=== PATIENT | female | born 1955 | race Caucasian/White ===

== ENCOUNTER 2017-11-15 15:18 | Inpatient (IN) | payer MEDICAID ==
[2017-11-15 15:20] VITALS: BMI 33.0
--- NOTE | 2017-11-15 16:33 | C.PDOC ---
History Of Present Illness 62 y/o female presents to the ED 5requesting for detox. The patient states that she had 8 cans a beer a day. The patient denies chest pain,Sob, SI, HI, diarrhea , and abdominal pain. Time Seen by Provider: 11/15/17 16:00 Chief Complaint (Nursing): Substance Abuse History Per: Patient History/Exam Limitations: other (alcohol abuse) Onset/Duration Of Symptoms: Days Current Symptoms Are (Timing): Still Present Additional History Per: Patient Past Medical History Reviewed: Historical Data, Nursing Documentation, Vital Signs Vital Signs: Last Vital Signs Temp 99.8 F H 11/15/17 15:58 Pulse 96 H 11/15/17 15:58 Resp 18 11/15/17 15:58 BP 138/77 11/15/17 15:58 Pulse Ox 96 11/15/17 18:44 - Medical History PMH: Anxiety, Depression, HTN Denies: Diabetes, Hepatitis, HIV, Seizures, Sexually Transmitted Disease Surgical History: Appendectomy, Endoscopy - [facility] Procedures ALCOHOL DETOXIFICATION (12/13/13) LAPAROSCOP APPENDECTOMY (07/27/13) OTHER GROUP THERAPY (05/08/13) OTHER LOCAL DESTRUC SKIN (07/28/02) RADICAL EXCIS SKIN LES (07/28/02) Family History: States: No Known Family Hx - Social History Hx Tobacco Use: Yes (1/2 pack daily) Hx Alcohol Use: Yes (1 pint pippa daily) Hx Substance Use: No - Immunization History Hx Tetanus Toxoid Vaccination: No Hx Influenza Vaccination: No Hx Pneumococcal Vaccination: Yes Review Of Systems Except As Marked, All Systems Reviewed And Found Negative. Constitutional: Negative for: Fever, Chills Cardiovascular: Negative for: Chest Pain, Palpitations Respiratory: Negative for: Cough, Shortness of Breath Gastrointestinal: Negative for: Nausea, Vomiting, Abdominal Pain, Diarrhea Skin: Negative for: Rash Physical Exam - Physical Exam Appears: Non-toxic, Other (calm) Skin: Warm, Dry Head: Atraumatic, Normacephalic Eye(s): bilateral: Normal Inspection Oral Mucosa: Moist Neck: Supple Chest: Symmetrical, No Tenderness Cardiovascular: Rhythm Regular Respiratory: Normal Breath Sounds, No Rales, No Rhonchi Gastrointestinal/Abdominal: Soft, No Tenderness, No Guarding, No Rebound Back: No CVA Tenderness Extremity: No Tenderness, Capillary Refill (2<sec.) Neurological/Psych: Normal Speech, Normal Sensation, Other (substance abuse ) Gait: Steady ED Course And Treatment - Laboratory Results Result Diagrams: 11/15/17 16:49 11/15/17 16:49 ECG Rhythm: Sinus Rhythm (97bpm, normal axis, poor R wave progression, and non specific st or T wave changes.) O2 Sat by Pulse Oximetry: 96 (RA) - Radiology CXR: Viewed By Me - Other Rad Chest X- ray X-Ray: Viewed By Me Interpretation: PROCEDURE: CHEST RADIOGRAPH, 1 VIEW. HISTORY: Detox/Psy. COMPARISON: 12/13/2013. FINDINGS: LUNGS: Clear. PLEURA: No pneumothorax or pleural fluid seen. CARDIOVASCULAR: Normal. OSSEOUS STRUCTURES: No significant abnormalities. VISUALIZED UPPER ABDOMEN: Normal. OTHER FINDINGS: None. IMPRESSION: No active disease. No acute/significant interval changes. Progress Note: UA, Blood work, Chest X- ray ,and EKG were performed. Chest X- ray exam was unremarkable. The patient is aferbile and asymptomatic. Upon reassessment, the patient is not in acute distress. Evaluation with Crisis at 7pm for consideration for placement. Diagnosed with substance and alcohol abuse. Medical Decision Making Medical Decision Making: patient signed out to Dr. Petersen pending sobriety and crisis evaluation. Disposition Counseled Patient/Family Regarding: Diagnosis - Disposition Disposition Time: 19:00 Condition: FAIR Forms: [facility] ([place] Citizen) - Clinical Impression Clinical Impression: Alcohol dependence - Scribe Statement The provider has reviewed the documentation as recorded by the Homero Smith Physician Patient Turnover Patient Signed Over To: Nate Petersen Handoff Comments: pending sobriety and crisis evaluation
[2017-11-15 17:01] LABS: BASO % 0.3 % (0.0-2.0); EOS % 0.2 % (0.0-4.0); HEMOGLOBIN 15.2 g/dL (11.0-16.0); LYMPH # 0.6 K/uL (1.0-4.3); LYMPH % 8.9 % (20.0-40.0); MEAN CORPUSCULAR HEMOGLOBIN 32.4 pg (27.0-31.0); MEAN CORPUSCULAR HGB CONC 33.9 g/dL (33.0-37.0); MEAN PLATELET VOLUME 7.8 fL (7.2-11.7); MONO # 0.3 K/uL (0.0-0.8); MONO % 3.9 % (0.0-10.0); NEUT # 6.2 K/uL (1.8-7.0); NEUT % 86.7 % (50.0-75.0); NRBC % 0.1 % (0.0-2.0); PLATELET COUNT 211 K/uL (130-400); WHITE BLOOD COUNT 7.1 K/uL (4.8-10.8)
[2017-11-15 17:13] LABS: MEAN CELL VOLUME 95.4 fL (81.0-99.0)
--- NOTE | 2017-11-15 17:14 | RAD ---
PROCEDURE: CHEST RADIOGRAPH, 1 VIEW HISTORY: Detox/Psy COMPARISON: 12/13/2013 FINDINGS: LUNGS: Clear. PLEURA: No pneumothorax or pleural fluid seen. CARDIOVASCULAR: Normal. OSSEOUS STRUCTURES: No significant abnormalities. VISUALIZED UPPER ABDOMEN: Normal. OTHER FINDINGS: None. IMPRESSION: No active disease. No acute/significant interval changes.
[2017-11-15 17:16] LABS: ALT/SGPT 49 U/L (9-52); AST/SGOT 90 U/L (14-36); BLOOD UREA NITROGEN 5 mg/dL (7-17); CALCIUM 8.6 mg/dl (8.6-10.4); GFR AFRICAN-AMERICAN > 60; GFR NON-AFRICAN AMERICAN > 60
[2017-11-15 17:16] LABS: SQUAMOUS EPITHIAL 44 /hpf (0-5); URINE BACTERIA OCC (<OCC)
[2017-11-15 17:18] LABS: PH,URINE 5.5 (5.0-8.0); URINE BILIRUBIN SMALL (NEGATIVE); URINE BLOOD SMALL (NEGATIVE); URINE CLARITY Hazy (Clear); URINE COLOR YELLOW (YELLOW); URINE GLUCOSE (UA) 100 mg/dL (Normal); URINE LEUKOCYTE ESTERASE NEGATIVE Leu/uL (Negative); URINE NITRATE POSITIVE (NEGATIVE); URINE PROTEIN 100 mg/dL (NEGATIVE)
[2017-11-15 17:20] LABS: ALB/GLOB RATIO 0.8 (1.0-2.1)
[2017-11-15] MEDS ORDERED: Thiamine 100 mg/ml Inj IM ONE (17:33)
[2017-11-15 17:48] LABS: BARBITURATES, UR NEGATIVE (NEGATIVE); BENZODIAZEPINES, UR NEGATIVE (NEGATIVE); OPIATES, UR NEGATIVE (NEGATIVE); PHENCYCLIDINE, UR NEGATIVE (NEGATIVE)
[2017-11-15 18:13] LABS: BANDS 3 % (0-2); EOSINOPHIL 1 % (0-4); LYMPHOCYTE 6 % (20-40); MONOCYTE 8 % (0-10); NEUTROPHIL 82 % (50-75); PLATELET ESTIMATE NORMAL (NORMAL); TOTAL CELLS COUNTED 100
[2017-11-15 18:15] LABS: MICROCYTOSIS SLIGHT
[2017-11-15 18:16] LABS: LARGE PLATELETS PRESENT
[2017-11-15] MEDS ORDERED: Thiamine 100 mg/ml Inj ONE (19:23)
--- NOTE | 2017-11-15 19:24 | PCM.BM ---
<ChiloZahida - Last Filed: 11/15/17 19:23> Treatment Plan Problems - Problems identified on initial assessmt Potential for alcohol withdrawal Date Initiated: 11/15/17 Time Initiated: 19:23 Assessment reference: NA Status: Active Priority: 1 Treatment assets and liabiliti Patient Assests: ADL independent, negotiates basic needs, cognitively intact Patient Liabilities: substance abuse (ETOH) - Milieu Protocol Maintain good personal hygiene: daily Encourage regular showers, daily Remind patient to perform daily oral care, daily Assist patient to perform ADL's Conduct patient checks and document Observation sheet: Q15 minutes Maintain personal safety: every shift Educate patient to report safety concerns to staff, every shift Monitor environment for contraband/sharps Medication safety: Monitor for expected outcome, potential side effects: every shift, Assess barriers to learning: every shift, Assess readiness for medication education: every shift <Graeme Shepard - Last Filed: 11/18/17 00:15> - Diagnosis (1) Alcohol dependence Status: Acute Interventions: 11/18/17 00:15 * Assess 7x/week regarding severity of withdrawal * Educate regarding risks, benefits, side effects and alternatives of medications * Use Motivational Interviewing for abstinence * Use CBT for relapse prevention * Medication management for withdrawal symptoms * Encourage medication assisted treatment *
[2017-11-16] MEDS: Multiple Vitamins Tab PO SCH (09:28)
--- NOTE | 2017-11-16 14:17 | PCM.PSYCH ---
Initial Psychiatric Evaluation - Initial Psychiatric Evaluation Type of Admission: Voluntary Legal Status: Capacity Chief Complaint (in patient's own words): "I want to detox from alcohol" History of Present Illness and Precipitating Events: Patient is a 62 year old female who was admitted for detox from alcohol. She is and has one 36 year old daughter with whom she lives. Currently she is unemployed and collecting welfare. She states she has a 10-15 year history of using alcohol. She states on average she drinks 8 to 9 cans of beer daily. He longest span of sobriety was 3 months. She currently is reporting symptoms of withdrawal: anxiety, sweating, shaking. She denies any seizures in the past. She denies the use of drugs and recently quit smoking 1 year ago. She states she had been to detox one time in 2013 here at [facility] ([facility] Patient also reports going to . She has never attended a rehab. She currently is expressing that she wants to get help so she can "get my life back together. get a job, and live on my own." Patient states she is willing to try anything but would prefer an out patient rehab center. Psych Hx: Depression PMH: Denies Family psych hx: Father, brother, and sister have alcohol use disorder. Current Medications: Active Medications Generic Name Dose Route Start Last Admin Trade Name Freq PRN Reason Stop Dose Admin Chlordiazepoxide 25 mg 11/15/17 20:13 11/15/17 22:18 Librium PO 25 mg Q4H PRN Administration Alcohol Withdrawal Chlordiazepoxide 25 mg 11/16/17 00:00 11/16/17 11:14 Librium PO 11/20/17 23:59 25 mg Q6H MARCO Administration Taper Folic Acid 1 mg 11/16/17 10:00 11/16/17 09:28 Folic Acid PO Not Given DAILY MARCO Ibuprofen 600 mg 11/16/17 04:42 11/16/17 06:44 Motrin Tab PO 600 mg Q8H PRN Administration Pain, moderate (4-7) Multivitamins 1 tab 11/16/17 10:00 11/16/17 09:28 Hexavitamin PO Not Given DAILY MARCO Thiamine HCl 100 mg 11/16/17 10:00 11/16/17 09:28 Vitamin B1 Tab PO Not Given DAILY MARCO Trazodone HCl 100 mg 11/16/17 10:01 Desyrel PO HS PRN Insomnia Past Psychiatric History - Past Psychiatric History Pertinent Medical Hx (Current Medical&Sleep Prob, Allergies): Allergies Allergy/AdvReac Type Severity Reaction Status Date / Time No Known Allergies Allergy Verified 05/08/13 17:48 Acetaminophen [Tylenol 325mg tab] 650 mg PO Q6 #20 tab 01/10/16 Promethazine DM [Phenergan DM Syrup] 5 ml PO QID #120 ml 01/10/16 Review of Systems - Review of Systems All systems: reviewed and no additional remarkable complaints except - Constitutional Constitutional: Sweats, Weakness - Musculoskeletal Musculoskeletal: Muscle Weakness - Neurological Neurological: Tremor - Psychiatric Psychiatric: Anxiety, Depression. absent: Hallucinations, Homicidal Ideation, Paranoia, Suicidal Ideation Mental Status Examination - Personal Presentation Personal Presentation: Looks stated age - Affect Affect: Constricted - Motor Activity Motor Activity: Calm - Reliability in Providing Information Reliability in Providing Information: Good - Speech Speech: Organized - Mood Mood: Depressed - Formal Thought Process Formal Thought Process: No Impairment - Cognitive Functions Orientation: Person, Place, Situation, Time Sensorium: Lethargic Attention/Concentration: Attentive Abstract Thinking: [place] Estimate of Intelligence: Below average - Risk Risk: Withdrawal, Diminished functioning DSM 5 DX - DSM 5 DSM 5 Diagnosis: Alcohol use disorder- Severe Alcohol withdrawal - Recommended/Plan of Treatment Treatment Recommendations and Plan of Treatment: Librium taper has been started Vitamins started As needed medications Attend groups and activities Supportive therapy and psychoeducation [place] for abstinence CBT for relapse prevention Encourage MAT Refer to rehab or IOP Attend self-help groups as well 34min
--- NOTE | 2017-11-17 00:04 | CARD ---
APPROVED REPORT EKG Measurement Heart [id number] <Conclusion> Normal sinus rhythm Inferior infarct, age undetermined Cannot rule out Anterior infarct, age undetermined ST & T wave abnormality, consider lateral ischemia Abnormal ECG
[2017-11-17] MEDS: Multiple Vitamins Tab PO SCH (09:28)
--- NOTE | 2017-11-17 14:45 | PCM.PYCHPN ---
Psychiatric Progress Note - Psychiatric Progress Note Patient seen today, length of contact: 16min Patient Chief Complaint: "I had back pain all night" Problems Identified/Issues Discussed: The pt is seen, chart reviewed, case discussed with staff. Patient states she feels a little better. She was unable to sleep through the night because of terrible back pain. She also states she is feeling weak and shaky. The pt is compliant with medications and reports no side-effects. Symptoms are improving but needs more time to stabilize. After care discussed, support and psychoeducation given. Medication Change: Yes Medical Record Reviewed: Yes Mental Status Examination - Cognitive Function Orientation: Person, Place, Situation, Time Memory: Intact Attention: WNL Concentration: Poor Association: WNL Fund of Knowledge: WNL - Mood Mood: Depressed - Affect Affect: Constricted, Flat - Speech Speech: Soft - Formal Thought Process Formal Thought Process: No Impairment - Suicidal Ideation Suicidal Ideation: No - Homicidal Ideation Homicidal Ideation: No Goal/Treatment Plan - Goal/Treatment Plan Need for Continued Stay: Discharge may exacerbated symptoms, Severe functional impairment Progress Toward Problem(s) and Goals/Treatment Plan: Librium taper has been started Vitamins started As needed medications Attend groups and activities Supportive therapy and psychoeducation [place] for abstinence CBT for relapse prevention Encourage MAT Refer to rehab or IOP Attend self-help groups as well
[2017-11-18] MEDS: Multiple Vitamins Tab PO SCH (10:19)
--- NOTE | 2017-11-18 13:14 | PCM.PYCHPN ---
Psychiatric Progress Note - Psychiatric Progress Note Patient seen today, length of contact: 16min Patient Chief Complaint: "I was able to sleep more, but my back is still sore." Problems Identified/Issues Discussed: The pt is seen, chart reviewed, case discussed with staff. Patient states she is weak and shaky. Back pain is improving. The pt is compliant with medications and reports no side-effects. Symptoms are improving but needs more time to stabilize. After care discussed, support and psychoeducation given. Medication Change: Yes (Librium taper ) Medical Record Reviewed: Yes Mental Status Examination - Cognitive Function Orientation: Person, Place, Situation, Time Memory: Intact Attention: WNL Concentration: WNL Association: WNL Fund of Knowledge: WNL - Mood Mood: Depressed - Affect Affect: Constricted, Flat - Speech Speech: Soft - Formal Thought Process Formal Thought Process: No Impairment - Suicidal Ideation Suicidal Ideation: No - Homicidal Ideation Homicidal Ideation: No Goal/Treatment Plan - Goal/Treatment Plan Need for Continued Stay: Discharge may exacerbated symptoms, Severe functional impairment Progress Toward Problem(s) and Goals/Treatment Plan: Librium taper has been started Vitamins started As needed medications Attend groups and activities Supportive therapy and psychoeducation [place] for abstinence CBT for relapse prevention Encourage MAT Refer to rehab or IOP Attend self-help groups as well
[2017-11-19] MEDS: Multiple Vitamins Tab PO SCH (09:39)
--- NOTE | 2017-11-19 11:44 | PCM.PYCHPN ---
Psychiatric Progress Note - Psychiatric Progress Note Patient seen today, length of contact: 16min Patient Chief Complaint: "I still cant sleep through the night " Problems Identified/Issues Discussed: The pt is seen, chart reviewed, case discussed with staff. Patient still has been unable to sleep. She stats she only gets 2 hours of sleep at night. The pt is compliant with medications and reports no side-effects. Symptoms are improving but needs more time to stabilize. After care discussed, support and psychoeducation given. Medication Change: Yes (Librium taper ) Medical Record Reviewed: Yes Mental Status Examination - Cognitive Function Orientation: Person, Place, Situation, Time Memory: Intact Attention: WNL Concentration: WNL Association: WNL Fund of Knowledge: WNL - Mood Mood: Depressed - Affect Affect: Constricted, Flat - Speech Speech: Soft - Formal Thought Process Formal Thought Process: No Impairment - Suicidal Ideation Suicidal Ideation: No - Homicidal Ideation Homicidal Ideation: No Goal/Treatment Plan - Goal/Treatment Plan Need for Continued Stay: Discharge may exacerbated symptoms, Severe functional impairment Progress Toward Problem(s) and Goals/Treatment Plan: Librium taper has been started Vitamins started As needed medications Attend groups and activities Supportive therapy and psychoeducation [place] for abstinence CBT for relapse prevention Encourage MAT Refer to rehab or IOP Attend self-help groups as well
[2017-11-19 14:04] VITALS: RESP 18
--- NOTE | 2017-11-20 09:16 | PCM.PYCHDC ---
Mental Status Examination - Mental Status Examination Orientation: Person Discharge Summary - Discharge Note Consultations:: List each consultation separately and include: 1. Reason for request. 2. Findings. 3. Follow-up Summary of Hospital Course include:: 1. Description of specific treatment plan utilized for patients during their course of treatmen. 2. Summarize the time- course for resolution of acute symptoms and/or regressed behaviors. 3. Describe issues identified and worked on during hospitalization. 4. Describe medication utilized. 5. Describe medical problems identified and treated. 6. Reassessment of suicide risk Summary of Hospital Course: Patient is a 62 year old female who was admitted for detox from alcohol. She is and has one 36 year old daughter with whom she lives. Currently she is unemployed and collecting welfare. She states she has a 10-15 year history of using alcohol. She states on average she drinks 8 to 9 cans of beer daily. He longest span of sobriety was 3 months. She currently is reporting symptoms of withdrawal: anxiety, sweating, shaking. She denies any seizures in the past. She denies the use of drugs and recently quit smoking 1 year ago. She states she had been to detox one time in 2013 here at [facility]. Patient also reports going to . She has never attended a rehab. She currently is expressing that she wants to get help so she can "get my life back together. get a job, and live on my own." Patient states she is willing to try anything but would prefer an out patient rehab center. Psych Hx: Depression PMH: Denies Family psych hx: Father, brother, and sister have alcohol use disorder. - Diagnosis (1) Alcohol dependence Current Visit: Yes Status: Acute - Final Diagnosis (DSM 5) Condition upon Discharge: FAIR Disposition: HOME/ ROUTINE Follow-up Treatment Plan: Librium taper has been started Vitamins started As needed medications Attend groups and activities Supportive therapy and psychoeducation [place] for abstinence CBT for relapse prevention Encourage MAT Refer to rehab or IOP Attend self-help groups as well Prescriptions/Medication Reconciliation: Ciprofloxacin [Cipro] 500 mg PO BID #10 tab Multivitamins [Hexavitamin] 1 tab PO DAILY #30 tab traZODone [Desyrel] 200 mg PO HS PRN #60 tab PRN Reason: Insomnia
[2017-11-20] MEDS: Multiple Vitamins Tab PO SCH (09:41)
[2017-11-20 14:15] VITALS: BP 119/75; PULSE 83; TEMP 98.9; O2SAT 95
== END 2017-11-20 16:08 | disposition home or self-care (01) | DRG 751 ==
LOC: C.ER 15:18 → C.7D 18:58
PROVIDERS: ADMIT Psychiatry & Neurology Psychiatry; ATTEND Psychiatry & Neurology Psychiatry
PROC: HZ2ZZZZ Detoxification Services for Substance Abuse Treatment (ICD-10-PCS; principal; 2017-11-15)
PROC: HZ46ZZZ Group Counseling for Substance Abuse Treatment, Psychoeducation (ICD-10-PCS; 2017-11-15)
PROC: HZ56ZZZ Individual Psychotherapy for Substance Abuse Treatment, Psychoeducation (ICD-10-PCS; 2017-11-15)
DX: F10.230 Alcohol dependence with withdrawal, uncomplicated (principal); F17.210 Nicotine dependence, cigarettes, uncomplicated; I10 Essential (primary) hypertension; F32.9 Major depressive disorder, single episode, unspecified

== ENCOUNTER 2018-09-25 15:52 | Inpatient (IN) | payer MEDICAID ==
[2018-09-25 15:52] VITALS: BMI 33.0
--- NOTE | 2018-09-25 16:24 | C.PDOC ---
History Of Present Illness 63 year old female presents to the ED requesting alcohol detoxification. Denies any SI/HI, auditory or visual hallucinations. Reports last alcoholic drink was today. Denies any physical complaints. Time Seen by Provider: 09/25/18 16:19 Chief Complaint (Nursing): Substance Abuse History Per: Patient History/Exam Limitations: no limitations Onset/Duration Of Symptoms: Days Suicide/Self Injury Attempted (Context): None Modifying Factor(s): Alcohol Associated Symptoms: denies: Suicidal Thoughts, Suicidal Plan Past Medical History Reviewed: Historical Data, Nursing Documentation, Vital Signs Vital Signs: Last Vital Signs Temp 98.4 F 09/25/18 15:55 Pulse 73 09/25/18 15:55 Resp 18 09/25/18 15:55 BP 185/94 H 09/25/18 15:55 Pulse Ox 96 09/25/18 15:55 - Medical History PMH: Anxiety, Depression, HTN Denies: Diabetes, Hepatitis, HIV, Seizures, Sexually Transmitted Disease Surgical History: Appendectomy, Endoscopy - [facility] Procedures ALCOHOL DETOXIFICATION (12/13/13) DETOXIFICATION SERVICES FOR SUBSTANCE ABUSE TREATMENT (11/15/17) GROUP [employer] FOR SUBSTANCE ABUSE TREATMENT, PSYCHOEDUCATION (11/15/17) INDIV PSYCHOTHERAPY FOR SUBSTANCE ABUSE, PSYCHOEDUCATION (11/15/17) LAPAROSCOP APPENDECTOMY (07/27/13) OTHER GROUP THERAPY (05/08/13) OTHER LOCAL DESTRUC SKIN (07/28/02) RADICAL EXCIS SKIN LES (07/28/02) Family History: States: No Known Family Hx - Social History Hx Tobacco Use: Yes (1/2 pack daily) Hx Alcohol Use: Yes Hx Substance Use: No - Immunization History Hx Tetanus Toxoid Vaccination: No Hx Influenza Vaccination: No Hx Pneumococcal Vaccination: No Review Of Systems Except As Marked, All Systems Reviewed And Found Negative. Constitutional: Positive for: Other (alcohol detox). Negative for: Fever, Chills Cardiovascular: Negative for: Chest Pain Respiratory: Negative for: Cough, Shortness of Breath Gastrointestinal: Negative for: Nausea, Vomiting, Abdominal Pain, Diarrhea Neurological: Negative for: Headache Psych: Negative for: Depression, Suicidal ideation Physical Exam - Physical Exam Appears: Non-toxic, No Acute Distress Skin: Warm, Dry, No Rash Head: Atraumatic, Normacephalic Eye(s): bilateral: Normal Inspection Nose: Normal Oral Mucosa: Moist Throat: No Erythema, No Exudate Neck: Normal ROM, Supple Chest: Symmetrical Cardiovascular: Rhythm Regular, No Friction Rub, No Murmur Respiratory: No Rales, No Rhonchi, No Wheezing Gastrointestinal/Abdominal: Soft, No Tenderness Back: Normal Inspection Extremity: Normal ROM, No Swelling Extremity: Bilateral: Atraumatic, Normal Color And Temperature, Normal ROM Pulses: Left Radial: Normal, Right Radial: Normal Neurological/Psych: Oriented x3, Normal Speech, Normal Motor, Normal Sensation Gait: Steady ED Course And Treatment - Laboratory Results Result Diagrams: 09/25/18 16:35 09/25/18 16:35 O2 Sat by Pulse Oximetry: 96 (RA) Progress Note: Blood collected and sent to the lab for analysis. Drug Screen ordered. K-dur ordered for slight hypokalemia. The patient has been medically cleared for detox admission. Disposition - Disposition Disposition: HOSPITALIZED Disposition Time: 17:49 Condition: STABLE Forms: [facility] (Greek) - POA Present On Arrival: None - Clinical Impression Clinical Impression: Alcohol dependence, Hypokalemia - PA / PILLOWCASE FOLDER / Resident Statement MD/DO has reviewed & agrees with the documentation as recorded. - Scribe Statement The provider has reviewed the documentation as recorded by the Scribe Zuleima Alva All medical record entries made by the Lexiibfrancesco were at my direction and personally dictated by me. I have reviewed the chart and agree that the record accurately reflects my personal performance of the history, physical exam, medical decision making, and the department course for this patient. I have also personally directed, reviewed, and agree with the discharge instructions and disposition.
[2018-09-25 16:39] LABS: BASO % 0.4 % (0.0-2.0); EOS % 0.4 % (0.0-4.0); HEMOGLOBIN 14.7 g/dL (11.0-16.0); LYMPH # 1.4 K/uL (1.0-4.3); LYMPH % 17.7 % (20.0-40.0); MEAN CELL VOLUME 88.8 fL (81.0-99.0); MEAN CORPUSCULAR HEMOGLOBIN 30.6 pg (27.0-31.0); MEAN CORPUSCULAR HGB CONC 34.5 g/dL (33.0-37.0); MEAN PLATELET VOLUME 7.3 fL (7.2-11.7); MONO # 0.3 K/uL (0.0-0.8); MONO % 4.3 % (0.0-10.0); NEUT # 5.9 K/uL (1.8-7.0); NEUT % 77.2 % (50.0-75.0); NRBC % 0.2 % (0.0-2.0); RBC 4.81 Mil/uL (3.80-5.20); WHITE BLOOD COUNT 7.7 K/uL (4.8-10.8)
[2018-09-25 16:42] LABS: SQUAMOUS EPITHIAL < 1 /hpf (0-5); URINE BILIRUBIN NEGATIVE (NEGATIVE); URINE BLOOD 2+ (NEGATIVE); URINE CLARITY Clear (Clear); URINE COLOR Straw (YELLOW); URINE GLUCOSE (UA) NORMAL (Normal); URINE LEUKOCYTE ESTERASE TRACE Leu/uL (Negative); URINE PROTEIN NEGATIVE (NEGATIVE); URINE UROBILINOGEN NORMAL mg/dL (0.2-1.0)
[2018-09-25 16:54] LABS: ALB/GLOB RATIO 1.1 (1.0-2.1); ALBUMIN 4.6 g/dL (3.5-5.0); ALT/SGPT 71 U/L (9-52); AST/SGOT 87 U/L (14-36); BLOOD UREA NITROGEN 7 mg/dL (7-17); CALCIUM 9.8 mg/dl (8.6-10.4); GFR NON-AFRICAN AMERICAN > 60
[2018-09-25 17:01] LABS: BARBITURATES, UR NEGATIVE (NEGATIVE); BENZODIAZEPINES, UR NEGATIVE (NEGATIVE); OPIATES, UR NEGATIVE (NEGATIVE); PHENCYCLIDINE, UR NEGATIVE (NEGATIVE)
[2018-09-25] MEDS ORDERED: Potassium Chloride 20 mEq/15 ml LIQ UD PO STA (17:40)
--- NOTE | 2018-09-25 18:01 | PCM.BM ---
<Zahida Woo - Last Filed: 09/25/18 18:00> Treatment Plan Problems - Problems identified on initial assessmt Potential for alcohol withdrawal Date Initiated: 09/25/18 Time Initiated: 18:01 Assessment reference: NA Status: Active Treatment assets and liabiliti Patient Assests: ADL independent, negotiates basic needs, cognitively intact Patient Liabilities: substance abuse (Alcohol), medical problems (HTN) - Milieu Protocol Maintain good personal hygiene: daily Encourage regular showers, daily Remind patient to perform daily oral care, daily Assist patient to perform ADL's Conduct patient checks and document Observation sheet: Q15 minutes Maintain personal safety: every shift Educate patient to report safety concerns to staff, every shift Monitor environment for contraband/sharps Medication safety: Monitor for expected outcome, potential side effects: every shift, Assess barriers to learning: every shift, Assess readiness for medication education: every shift <Graeme Shepard - Last Filed: 09/26/18 09:58> - Diagnosis (1) Alcohol dependence Status: Acute Interventions: 09/26/18 09:58 * Assess 7x/week regarding severity of withdrawal * Educate regarding risks, benefits, side effects and alternatives of medications * Use Motivational Interviewing for abstinence * Use CBT for relapse prevention * Medication management for withdrawal symptoms * Encourage medication assisted treatment * <Victoria Carranza - Last Filed: 09/26/18 14:06> Family Contact Family involvement: Famliy/SO not involved - Goals for Treatment Patient goals for treatment: Complete detox, [facility] o[facility] and incorporate o/p substance abuse counseling--preferably individual sessions. Discharge/Continuing Care - Education Needs Education Needs: Family Medication, Family Diagnosis/Disease Process, Family Community resources, Patient Medication, Patient Diagnosis/Disease Process, Patient Coping Skills, Patient Anger Management skills, Patient Placement options, Patient Community resources - Discharge Discharge Criteria: No longer exhibiting s/s of withdrawal, Reduction of target symptoms Discharge to:: Home, With Family - Treatment Team Participation Patient/Family/SO Statement: 09/26/18 14:06 "I'll go to outpatient counseling...I gotta go back to work..." Discussed with Family/SO: No Was Patient/Family/SO present at Treatment Team Meeting: Yes
[2018-09-25] MEDS: Magnesium Oxide 400 mg Tab UD PO SCH (19:16)
--- NOTE | 2018-09-26 09:58 | PCM.PSYCH ---
Initial Psychiatric Evaluation - Initial Psychiatric Evaluation Type of Admission: Voluntary Legal Status: Capacity Chief Complaint (in patient's own words): "I need to stop alcohol" History of Present Illness and Precipitating Events: She is seen, chart is reviewed, case discussed. She is known from previous detox Patient is a 62 year old female who was admitted for detox from alcohol. She is and has one 36 year old daughter with whom she lives. 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 She states she has a 10-15 year history of using alcohol. She states on average she drinks 12 shots of vodka and sometimes beer too, daily. Her longest span of sobriety was 3 months. She currently is reporting symptoms of withdrawal: anxiety, sweating, shaking. She denies any seizures in the past. She denies the use of drugs and recently quit smoking 1 year ago. She states she had been to detox twice in here at [facility] 2013 and 2018. Patient also reports going to in the past. She has never attended a rehab. She feels depressed but not suicidal. No psychosis or shayy. Psych Hx: Depression PMH: Denies Family psych hx: Father, brother, and sister have alcohol use disorder. Brother is now homeless and may have a mental illness. Current Medications: Active Medications Generic Name Dose Route Start Last Admin Trade Name Freq PRN Reason Stop Dose Admin Chlordiazepoxide 25 mg 09/25/18 18:24 09/25/18 21:31 Librium PO 25 mg Q4H PRN Administration Alcohol Withdrawal Chlordiazepoxide 25 mg 09/26/18 00:00 09/26/18 05:54 Librium PO 09/30/18 23:59 25 mg Q6H MARCO Administration Taper Clonidine HCl 0.1 mg 09/25/18 18:24 09/26/18 05:56 Catapres PO 0.1 mg Q4H PRN Administration Symptoms of alcohol withdrawl Escitalopram Oxalate 5 mg 09/26/18 10:00 Lexapro PO DAILY MARCO Folic Acid 1 mg 09/26/18 10:00 Folic Acid PO DAILY MARCO Hydroxyzine HCl 25 mg 09/25/18 18:26 Atarax PO Q6H PRN Anxiety Ibuprofen 400 mg 09/25/18 18:26 Motrin Tab PO Q6H PRN Pain, moderate (4-7) Magnesium Oxide 400 mg 09/25/18 19:00 09/25/18 19:16 Mag-Ox PO 400 mg DAILY MARCO Administration Multivitamins 1 tab 09/26/18 10:00 Hexavitamin PO DAILY MARCO Thiamine HCl 100 mg 09/26/18 10:00 Vitamin B1 Tab PO DAILY MARCO Trazodone HCl 50 mg 09/25/18 18:24 09/25/18 21:30 Desyrel PO 50 mg HS PRN Administration Insomnia Past Psychiatric History - Past Psychiatric History Previous Treatment History: Intensive Outpatient Pertinent Medical Hx (Current Medical&Sleep Prob, Allergies): Allergies Allergy/AdvReac Type Severity Reaction Status Date / Time No Known Allergies Allergy Verified 09/25/18 16:00 Escitalopram Oxalate [Lexapro] 5 mg PO DAILY 09/25/18 Review of Systems - Neurological Neurological: UNREMARKABLE - Psychiatric Psychiatric: Abnormal Sleep Pattern, Anhedonia, Anxiety, Change in Appetite, Depression, Difficulty Concentrating. absent: Hallucinations, Homicidal Ideation, Paranoia, Suicidal Ideation Mental Status Examination - Personal Presentation Personal Presentation: Looks stated age - Affect Affect: Constricted - Motor Activity Motor Activity: Calm - Reliability in Providing Information Reliability in Providing Information: Good - Speech Speech: Organized - Mood Mood: Depressed, Anxious - Formal Thought Process Formal Thought Process: No Impairment - Cognitive Functions Orientation: Person, Place, Situation, Time Sensorium: Alert Attention/Concentration: Easily distracted Estimate of Intelligence: Average Judgement: Intact, as evidence by: Insight regarding need for hospitalization Memory: Recent intact, as evidence by: Ability to recall events of the day, Remote intact, as evidenced by: Abilit to recall sig. life events - Risk Risk: Withdrawal, Diminished functioning - Strength & Assets Inventory Strength & Assets Inventory: Cooperative - Limitations Limitations: Living alone DSM 5 DX - DSM 5 DSM 5 Diagnosis: Alcohol use disorder- Severe Alcohol withdrawal Major Depressive d/o - recurrent, severe - Recommended/Plan of Treatment Treatment Recommendations and Plan of Treatment: Librium taper has been started Lexapro started Vitamins started As needed medications Attend groups and activities Supportive therapy and psychoeducation OR for abstinence CBT for relapse prevention Encourage MAT Refer to rehab or IOP Attend self-help groups as well 34 min Projected ELOS: 4-5 days Prognosis: good w treatment - Smoking Cessation Smoking Cessation Initiated: Yes
[2018-09-26] MEDS: Multiple Vitamins Tab PO SCH (10:25)
[2018-09-26] MEDS: Magnesium Oxide 400 mg Tab UD PO SCH (10:25)
[2018-09-27] MEDS: Multiple Vitamins Tab PO SCH (10:01)
[2018-09-27] MEDS: Magnesium Oxide 400 mg Tab UD PO SCH (10:01)
[2018-09-28] MEDS: Multiple Vitamins Tab PO SCH (09:25)
[2018-09-28] MEDS: Magnesium Oxide 400 mg Tab UD PO SCH (10:14)
--- NOTE | 2018-09-28 14:14 | PCM.PYCHPN ---
Psychiatric Progress Note - Psychiatric Progress Note Patient seen today, length of contact: 15 min Patient Chief Complaint: "I couldn't sleep" Problems Identified/Issues Discussed: The pt is seen, chart reviewed, case discussed with staff. The pt is compliant with medications and reports no side-effects. Symptoms are improving but needs more time to stabilize. Pt attends groups and activities. Support given, psycho-education provided. After care discussed. Medication Change: Yes (detox changes daily) Medical Record Reviewed: Yes Mental Status Examination - Cognitive Function Orientation: Person, Place, Situation, Time Memory: Intact Attention: WNL Concentration: Poor Association: WNL Fund of Knowledge: WNL - Mood Mood: Depressed, Anxious - Affect Affect: Constricted - Formal Thought Process Formal Thought Process: No Impairment - Suicidal Ideation Suicidal Ideation: No - Homicidal Ideation Homicidal Ideation: No Goal/Treatment Plan - Goal/Treatment Plan Need for Continued Stay: Discharge may exacerbated symptoms, Severe functional impairment Progress Toward Problem(s) and Goals/Treatment Plan: Librium taper has been started Lexapro started Vitamins started As needed medications Attend groups and activities Supportive therapy and psychoeducation [place] for abstinence CBT for relapse prevention Encourage MAT Refer to rehab or IOP Attend self-help groups as well
--- NOTE | 2018-09-28 14:47 | PCM.PYCHPN ---
Psychiatric Progress Note - Psychiatric Progress Note Patient seen today, length of contact: 16 min Patient Chief Complaint: "I couldn't sleep" Problems Identified/Issues Discussed: The pt is seen, chart reviewed, case discussed with staff. The pt is compliant with medications and reports no side-effects. Symptoms are improving but needs more time to stabilize. Pt attends groups and activities. Support given, psycho-education provided. After care discussed. Medication Change: Yes (detox changes daily) Medical Record Reviewed: Yes Mental Status Examination - Cognitive Function Orientation: Person, Place, Situation, Time Memory: Intact Attention: WNL Concentration: Poor Association: WNL Fund of Knowledge: WNL - Mood Mood: Depressed, Anxious - Affect Affect: Constricted - Formal Thought Process Formal Thought Process: No Impairment - Suicidal Ideation Suicidal Ideation: No - Homicidal Ideation Homicidal Ideation: No Goal/Treatment Plan - Goal/Treatment Plan Need for Continued Stay: Discharge may exacerbated symptoms, Severe functional impairment Progress Toward Problem(s) and Goals/Treatment Plan: Librium taper has been started Lexapro started Vitamins started As needed medications Attend groups and activities Supportive therapy and psychoeducation [place] for abstinence CBT for relapse prevention Encourage MAT Refer to rehab or IOP Attend self-help groups as well
[2018-09-29] MEDS: Magnesium Oxide 400 mg Tab UD PO SCH (10:03)
[2018-09-29] MEDS: Multiple Vitamins Tab PO SCH (10:03)
--- NOTE | 2018-09-29 11:46 | PCM.PYCHPN ---
Psychiatric Progress Note - Psychiatric Progress Note Patient seen today, length of contact: 17 min Patient Chief Complaint: "I couldn't sleep" Problems Identified/Issues Discussed: The pt is seen, chart reviewed, case discussed with staff. The pt is compliant with medications and reports no side-effects. Symptoms are improving but needs more time to stabilize. Pt attends groups and activities. Support given, psycho-education provided. After care discussed. Medication Change: Yes (detox changes daily) Medical Record Reviewed: Yes Mental Status Examination - Cognitive Function Orientation: Person, Place, Situation, Time Memory: Intact Attention: WNL Concentration: Poor Association: WNL Fund of Knowledge: WNL - Mood Mood: Depressed, Anxious - Affect Affect: Constricted - Formal Thought Process Formal Thought Process: No Impairment - Suicidal Ideation Suicidal Ideation: No - Homicidal Ideation Homicidal Ideation: No Goal/Treatment Plan - Goal/Treatment Plan Need for Continued Stay: Discharge may exacerbated symptoms, Severe functional impairment Progress Toward Problem(s) and Goals/Treatment Plan: Librium taper has been started Lexapro started Vitamins started As needed medications Attend groups and activities Supportive therapy and psychoeducation [place] for abstinence CBT for relapse prevention Encourage MAT Refer to rehab or IOP Attend self-help groups as well
[2018-09-30] MEDS: Multiple Vitamins Tab PO SCH (09:43)
[2018-09-30] MEDS: Magnesium Oxide 400 mg Tab UD PO SCH (09:46)
--- NOTE | 2018-09-30 13:01 | PCM.PYCHPN ---
Psychiatric Progress Note - Psychiatric Progress Note Patient seen today, length of contact: 17 min Patient Chief Complaint: "I couldn't sleep" Problems Identified/Issues Discussed: The pt is seen, chart reviewed, case discussed with staff. The pt is compliant with medications and reports no side-effects. Symptoms are improving but needs more time to stabilize. Pt attends groups and activities. Support given, psycho-education provided. After care discussed. Medication Change: Yes (detox changes daily) Medical Record Reviewed: Yes Mental Status Examination - Cognitive Function Orientation: Person, Place, Situation, Time Memory: Intact Attention: WNL Concentration: Poor Association: WNL Fund of Knowledge: WNL - Mood Mood: Depressed, Anxious - Affect Affect: Constricted - Formal Thought Process Formal Thought Process: No Impairment - Suicidal Ideation Suicidal Ideation: No - Homicidal Ideation Homicidal Ideation: No Goal/Treatment Plan - Goal/Treatment Plan Need for Continued Stay: Discharge may exacerbated symptoms, Severe functional impairment Progress Toward Problem(s) and Goals/Treatment Plan: Librium taper has been started Lexapro started Vitamins started As needed medications Attend groups and activities Supportive therapy and psychoeducation [place] for abstinence CBT for relapse prevention Encourage MAT Refer to rehab or IOP Attend self-help groups as well
[2018-09-30 17:33] VITALS: O2SAT 96
[2018-10-01] MEDS: Magnesium Oxide 400 mg Tab UD PO SCH (09:21)
[2018-10-01] MEDS: Multiple Vitamins Tab PO SCH (09:22)
[2018-10-01] MEDS ORDERED: Pneumococcal 23-Valent Vaccine IM ONE (13:00)
[2018-10-01 13:42] VITALS: BP 136/75; PULSE 86; RESP 19; TEMP 98.3
--- NOTE | 2018-10-01 19:36 | PCM.PYCHDC ---
Mental Status Examination - Mental Status Examination Orientation: Person, Place, Situation, Time Memory: Intact Mood: Neutral Affect: Other Speech: Appropriate Attention: WNL Concentration: WNL Association: WNL Fund of Knowledge: WNL (Appropriate) Formal Thought Process: No Impairment Description of patient's judgement and insight: Fair Psychotic Thoughts and Behaviors: None Suicidal Ideation: No Current Homicidal Ideation?: No Discharge Summary - Discharge Note Reason for Hospitalization: Alcohol use disorder severe. Major depressive disorder recurrent severe Laboratory Data: Reviewed Consultations:: List each consultation separately and include: 1. Reason for request. 2. Findings. 3. Follow-up Summary of Hospital Course include:: 1. Description of specific treatment plan utilized for patients during their course of treatmen. 2. Summarize the time- course for resolution of acute symptoms and/or regressed behaviors. 3. Describe issues identified and worked on during hospitalization. 4. Describe medication utilized. 5. Describe medical problems identified and treated. 6. Reassessment of suicide risk Summary of Hospital Course: She is seen, chart is reviewed, case discussed. She is known from previous detox Patient is a 62 year old female who was admitted for detox from alcohol. She is and has one 36 year old daughter with whom she lives. 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 She states she has a 10-15 year history of using alcohol. She states on average she drinks 12 shots of vodka and sometimes beer too, daily. Her longest span of sobriety was 3 months. She currently is reporting symptoms of withdrawal: anxiety, sweating, shaking. She denies any seizures in the past. She denies the use of drugs and recently quit smoking 1 year ago. She states she had been to detox twice in here at [facility] 2013 and 2018. Patient also reports going to in the past. She has never attended a rehab. She feels depressed but not suicidal. No psychosis or shayy. Psych Hx: Depression PMH: Denies Family psych hx: Father, brother, and sister have alcohol use disorder. Brother is now homeless and may have a mental illness. Patient was treated with Librium taper for alcohol withdrawal symptoms and other when necessary medications. Patient was also attending groups and other activities on the unit. With above treatment patient started feeling better. Today patient was stable and had no withdrawal symptoms. She was ready for discharge from the hospital. At the time of evaluation and discharge, patient was calm and cooperative, awake, alert and oriented 3, no delusions, no auditory or visual hallucinations, no suicidal ideations or homicidal ideations. Patient was discharged in a stable condition. - Final Diagnosis (DSM 5) Condition upon Discharge: STABLE Disposition: HOME/ ROUTINE Prescriptions/Medication Reconciliation: Escitalopram [Lexapro] 10 mg PO DAILY #30 tab hydrOXYzine HCl [Atarax] 50 mg PO BID PRN #60 tab PRN Reason: Anxiety Magnesium Oxide [Mag-Ox] 400 mg PO DAILY #30 tab traZODone [Desyrel] 100 mg PO HS #30 tab - Smoking Cessation Smoking Cessation Medication prescribed: No - Antipsychotic Medications Pt discharged on 2 or more routine antipsychotic medications: No
== END 2018-10-01 17:10 | disposition home or self-care (01) | DRG 750 ==
LOC: C.ER 15:52 → C.7D 17:41
PROVIDERS: ADMIT Psychiatry & Neurology Psychiatry; ATTEND Psychiatry & Neurology Psychiatry
PROC: HZ2ZZZZ Detoxification Services for Substance Abuse Treatment (ICD-10-PCS; principal; 2018-09-25)
PROC: HZ52ZZZ Individual Psychotherapy for Substance Abuse Treatment, Cognitive-Behavioral (ICD-10-PCS; 2018-09-25)
PROC: HZ59ZZZ Individual Psychotherapy for Substance Abuse Treatment, Supportive (ICD-10-PCS; 2018-09-25)
PROC: HZ56ZZZ Individual Psychotherapy for Substance Abuse Treatment, Psychoeducation (ICD-10-PCS; 2018-09-25)
PROC: HZ42ZZZ Group Counseling for Substance Abuse Treatment, Cognitive-Behavioral (ICD-10-PCS; 2018-09-25)
PROC: HZ46ZZZ Group Counseling for Substance Abuse Treatment, Psychoeducation (ICD-10-PCS; 2018-09-25)
PROC: GZHZZZZ Group Psychotherapy (ICD-10-PCS; 2018-09-25)
PROC: GZ58ZZZ Individual Psychotherapy, Cognitive-Behavioral (ICD-10-PCS; 2018-09-25)
PROC: GZ56ZZZ Individual Psychotherapy, Supportive (ICD-10-PCS; 2018-09-25)
DX: F10.230 Alcohol dependence with withdrawal, uncomplicated (principal); E87.6 Hypokalemia; F33.2 Major depressive disorder, recurrent severe without psychotic features; Y90.6 Blood alcohol level of 120-199 mg/100 ml